=== PATIENT | male | born 1990 | race Caucasian/White ===

== ENCOUNTER 2017-11-29 15:42 | Emergency (ER) | payer SELFPAY ==
[~2017-11-29] VITALS: Ht 185.4 cm; Wt 67.5 kg
[~2017-11-29 15:42] MED LIST: NAPROSYN500 MG PO; NAPROXEN500 MG PO; NOHOMEMEDS; PEN-VEE K,VEET500 MG PO; PREDNISONE20 MG PO; TRAMADOL HCL50 MG PO; ZOFRAN4 MG PO
[2017-11-29 16:20] VITALS: BP 112/68
[2017-11-29 16:59] LABS: HEMATOCRIT 38.7 % (38.0-50.0); HEMOGLOBIN 13.1 G/DL (12.5-16.6); MCH 28.9 PG (29.0-34.0); MCHC 33.9 G/DL (30.0-36.0); MCV 85.4 FL (86-99); PLATELET COUNT 222 K/uL (156-360); RBC DIS.WIDTH-CV 13.4 % (11.8-14.6); RBC DIS.WIDTH-SD 41.9 % (39-53); RED BLOOD COUNT 4.53 M/uL (4.00-5.50)
[2017-11-29 17:10] LABS: CHLORIDE 103 mEq/L (99-109); POTASSIUM 3.7 mEq/L (3.7-5.4); SODIUM 137 mEq/L (136-147)
[2017-11-29 17:11] LABS: GLUCOSE 68 mg/dL (70-99)
[2017-11-29 17:15] LABS: CREATININE 0.8 mg/dL (0.6-1.3); GFR ESTIMATE (CALCULATED) > 59 mL/min/ (58.99-99999)
[2017-11-29 17:16] LABS: UREA NITROGEN (BUN) 12 mg/dL (9-23)
[2017-11-29 17:22] LABS: TROP-I INTERPRETATION NEGATIVE; TROPONIN-I < 0.01 ng/mL (0.0-0.30)
== END 2017-11-29 20:40 | disposition left against medical advice (07) ==
LOC: EME 15:42
PROVIDERS: Physician Assistant
DX: R07.9 Chest pain, unspecified (principal); R50.9 Fever, unspecified; J02.9 Acute pharyngitis, unspecified; R51 Headache; R11.0 Nausea; F15.90 Other stimulant use, unspecified, uncomplicated; F17.200 Nicotine dependence, unspecified, uncomplicated; K02.9 Dental caries, unspecified; Z53.20 Procedure and treatment not carried out because of patient's decision for unspecified reasons
CPT/HCPCS: 71046; 80048; 84484; 85027; 87081; 87651 90; 93005